=== PATIENT | female | born 1990 | race Caucasian/White ===

== ENCOUNTER → 2017-06-27 | Outpatient (REF) | payer OTHER | LOC: M SFHCLERA 12:13 | PROVIDERS: ATTEND Physician Assistant | DX: N89.8 Other specified noninflammatory disorders of vagina (principal) ==

== ENCOUNTER → 2017-11-05 | Outpatient (REF) | payer OTHER ==
[2017-11-05 21:31] LABS: CHLAMYDIA DNA AMPLIFICATION NEGATIVE (NEGATIVE); GC DNA AMPLIFICATION NEGATIVE (NEGATIVE)
[2017-11-06 11:25] LABS: HIV 1&2 SCREEN CENTAUR NEGATIVE (NEGATIVE)
== END ==
LOC: M SFHCLERA 10:38
DX: N89.8 Other specified noninflammatory disorders of vagina (principal); Z11.4 Encounter for screening for human immunodeficiency virus [HIV]

== ENCOUNTER 2018-10-06 17:37 | Emergency (ER) | payer OTHER ==
[~2018-10-06] VITALS: Ht 157.5 cm; Wt 74.5 kg
[2018-10-06 20:29] VITALS: BP 132/72
== END 2018-10-06 20:29 | disposition home or self-care (01) ==
LOC: M ED 17:37
DX: S06.0X0A Concussion without loss of consciousness, initial encounter (principal); W00.0XXA Fall on same level due to ice and snow, initial encounter; Y92.89 Other specified places as the place of occurrence of the external cause

== ENCOUNTER → 2018-10-23 | Outpatient (CLI) | payer OTHER ==
--- NOTE | 2018-10-25 08:52 | REP ---
MRI brain without contrast: History: Concussion. . Comparison study: No comparison study. Technique: Axial and sagittal imaging planes are utilized for T1 and T2-weighted scans. Sequences include spin-echo, fast spin echo, FLAIR, and diffusion weighted sequences. MRI findings: No bony calvarial lesion is seen. Craniocervical junction and upper cervical cord are normal in appearance. There is no MR evidence of significant paranasal sinus disease. No intraorbital abnormality is seen. The lateral, third, and fourth ventricles are normal in size and position. Sherman-white differentiation pattern is intact above and below the tentorium. There is no evidence of intracranial hemorrhage. No mass, infarction, extra-axial fluid collection or midline shift is seen. No abnormal white matter lesion is seen. Impression: Negative noncontrast brain MRI study. Electronically Signed by Jose Elias Munoz MD 10/25/2018 08:43 A
== END ==
LOC: M RAD 10:16
PROVIDERS: ATTEND Family Medicine
DX: S06.0X0A Concussion without loss of consciousness, initial encounter (principal); X58.XXXA Exposure to other specified factors, initial encounter; Y92.9 Unspecified place or not applicable

== ENCOUNTER → 2019-06-09 | Outpatient (REF) | payer OTHER ==
[2019-06-09 23:06] LABS: CHLAMYDIA DNA AMPLIFICATION NEGATIVE (NEGATIVE); GC DNA AMPLIFICATION NEGATIVE (NEGATIVE)
== END ==
LOC: M SFHCLERA 11:36
PROVIDERS: ATTEND Physician Assistant
DX: R30.0 Dysuria (principal)

== ENCOUNTER → 2019-12-17 | Outpatient (REF) | payer OTHER ==
[2019-12-17 20:27] LABS: CHLAMYDIA DNA AMPLIFICATION POSITIVE (NEGATIVE); GC DNA AMPLIFICATION NEGATIVE (NEGATIVE)
== END ==
LOC: M SFHCLERA 13:17
PROVIDERS: ATTEND Physician Assistant
DX: R30.0 Dysuria (principal)

== ENCOUNTER → 2020-06-07 | Outpatient (REF) | payer OTHER ==
[2020-06-07 21:14] LABS: CHLAMYDIA DNA AMPLIFICATION NEGATIVE (NEGATIVE); GC DNA AMPLIFICATION NEGATIVE (NEGATIVE)
== END ==
LOC: M SFHCLERA 16:26
PROVIDERS: ATTEND Family Medicine
DX: Z11.3 Encounter for screening for infections with a predominantly sexual mode of transmission (principal)

== ENCOUNTER → 2020-06-07 | Outpatient (CLI) | payer OTHER ==
[2020-06-07 13:59] LABS: HCG, SERUM QUALITATIVE NEGATIVE (NEGATIVE)
[2020-06-07 14:39] LABS: HEPATITIS A ANTIBODY IGM NEGATIVE (NEGATIVE); HEPATITIS B CORE ANTIBODY IGM NEGATIVE (NEGATIVE); HEPATITIS B SURFACE ANTIGEN NEGATIVE (NEGATIVE); HEPATITIS C VIRUS ABY INDEX 0.1 INDEX (<0.8); HIV 1&2 SCREEN CENTAUR NEGATIVE (NEGATIVE)
== END ==
LOC: M LAB 12:33
PROVIDERS: ATTEND Family Medicine
DX: Z11.3 Encounter for screening for infections with a predominantly sexual mode of transmission (principal); Z20.2 Contact with and (suspected) exposure to infections with a predominantly sexual mode of transmission

== ENCOUNTER → 2020-06-21 | Outpatient (REF) | payer OTHER | LOC: M SFHCWAGY 16:22 | PROVIDERS: ATTEND Family Medicine | DX: Z12.4 Encounter for screening for malignant neoplasm of cervix (principal); N76.0 Acute vaginitis ==

== ENCOUNTER → 2020-08-10 | Outpatient (CLI) | payer OTHER ==
--- NOTE | 2020-08-10 14:05 | REP ---
INDICATION: N630. RIGHT BREAST LUMP HX, GALACTORRHEA; R BREAST UPPER QUANDRANT NODULE. COMPARISON: Mammography no comparison breast imaging. TECHNIQUE: Bilateral CC and MLO) view(s) were taken. An opaque skin markers fixes skin at the site of the palpable lump and is visible on the MLO projection images. Apparently it had fallen off for the CC views but is noted to be in the upper outer quadrant anterior 3rd. Routine views of the right breast are augmented by magnified focal spot-compression CC MLO and true mL images. 3D tomography is carried. FINDINGS: Scattered fibroglandular elements are seen bilaterally. No suspicious or dominant density is seen. No microcalcification or architectural distortion is seen. No worrisome skin change is appreciated. 3-D tomosynthesis shows no additional finding. No dominant density is seen at the site of the palpable lump or elsewhere in either breast on mammography. Normal appearing lymph nodes are visible in the right axilla. No spiculation, architectural distortion or microcalcification is observed. No worrisome skin changes seen. Sonographic evaluation. Targeted sonography at site of the palpable lump demonstrates a complex cyst just beneath the dermis of the skin in the 12 o'clock position of the right breast. This measures 3.5 x 4.0 x 2.4 mm. There is well-defined back wall and some enhanced through transmission consistent with a complex cyst. There is no observable tract to the overlying skin. It does not meet criteria of a simple cyst. The Volpara volumetric breast density pattern is B. IMPRESSION: BI-RADS category 4 suspicious sonographic findings of the right breast. No mammographic abnormality or correlate. Ultrasound-guided needle biopsy of the palpable abnormality at 12 o'clock in the right breast with marker clip placement and post clip placement mammography recommended.. [facility] lifetime breast cancer risk assessment score is 11.9%. This mammogram was interpreted with the aid of an FDA-approved computer-aided detection system. The patient states she had a clinical breast exam in July of 2020. The patient letter being requested is M4. RECOMMENDATION: Ultrasound-guided needle biopsy right breast nodule with clip placement and post clip placement mammographya. <Electronically signed by Shaquille Munoz > 08/10/20 [id number]
== END ==
LOC: M WHC 10:58
PROVIDERS: ATTEND Family Medicine
DX: N63.11 Unspecified lump in the right breast, upper outer quadrant (principal)
CPT/HCPCS: 76642; 77066; G0279

== ENCOUNTER → 2020-08-29 | Outpatient (CLI) | payer OTHER ==
[2020-08-29 12:37] VITALS: BP 128/68
--- NOTE | 2020-08-29 13:00 | ROOPDOC ---
[facility] Report Of Operation Report of Operation Date of the procedure:08/29/20 Diagnosis: Right complex cyst which is palpable Procedure:ultrasound guided aspiration of Right breast complex cyst Proceduralist: Lucien Betancourt D.O. EBL: minimal Lidocaine 1% LOT [id number] Expiration: 04/2023 Sodium Bicarbonate 8.4% LOT [id number] Expiration: Procedure details: Patient noted a palpable nodule in her right breast at 12:00 4 CFN. Diagnostic mammogram showed no suspicious lesions. Diagnostic US of the area showed a small complex cyst right under dermis. BIRADS4 category was assigned to this study and tissue evaluation was recommended. Informed consent was obtained. The most common risk and possible complications including bleeding, hematoma, bruising, infection, injury to surrounding structures were explained to the patient and she expressed understanding. Patient was taken to the procedure room and placed on the bed. Appropriate time out was done stating patients name, date of , and the procedure to be performed. The right breast was prepped and draped in the usual fashion. The ultrasound was used to confirm the location of the complex cyst in the right breast at 12:00 4 centimeters from the nipple. Patent was asked to confirm the location of her palpable nodule and she pointed to the 12:00 4 CFN location. Plain Lidocaine 1% and 8.4% sodium bicarbonate 10:1 mix was used to numb the skin, and tissues along the anticipated aspiration tract. 22 G Spinal needle was used to aspirate cyst under direct ultrasound guidance. Aspirated fluid was sanguineous and amounted to 1 cc. The fluid was sent for evaluation. The complex cyst completely collapsed and images were captured. Manual pressure over the cyst aspiration site and tract was held. No bleeding was noted upon removal of the pressure. There was no need for post procedure mammogram as there were no mammographic abnormalities identified in the first place. Patient tolerated procedure well. Discharge instructions were discussed with the patient and she expressed understanding. LUCIEN BETANCOURT DO Aug 29, 2020 13:00
--- NOTE | 2020-08-29 18:49 | REP ---
INDICATION: N63.10 RT BREAST LUMP,ASPIRATON W/POSS RT BREAST BIOPSY. COMPARISON: Comparison sonography August 10, 2020.. TECHNIQUE: Ultrasound guidance is provided to Dr. Germain. FINDINGS: Sonographic guidance is provided to Dr. Germain. An ultrasound-guided cyst aspiration was performed the right breast in the 12 o'clock position. IMPRESSION: Sonographic guidance. <Electronically signed by Shaquille Munoz > 08/29/20 [id number]
== END ==
LOC: M WHCPRO 10:12
PROVIDERS: ATTEND Surgery
DX: N60.01 Solitary cyst of right breast (principal)

== ENCOUNTER → 2021-04-05 | Outpatient (CLI) | payer OTHER ==
[~2021-04-05] MED LIST: MULT1TAB94 PO; MULTTAB61 PO; VITAD400CA PO
== END ==
LOC: M WUC 10:21
PROVIDERS: ATTEND Nurse Practitioner Family
DX: J01.00 Acute maxillary sinusitis, unspecified (principal)

== ENCOUNTER 2021-09-05 10:08 | Emergency (ER) | payer OTHER ==
[~2021-09-05] VITALS: Ht 157.5 cm; Wt 76.2 kg
[2021-09-05 10:08] VITALS: BP 129/72
[2021-09-05] MEDS ORDERED: VITAD400CA PO (10:38)
[2021-09-05] MEDS ORDERED: MULTTAB61 PO (10:38)
[2021-09-05] MEDS ORDERED: MULT1TAB94 PO (10:38)
[2021-09-05 11:21] LABS: BASO % 0.3 % (0.0-1.0); EOS # 0.1 10^3/uL (0.0-0.5); EOS % 1.3 % (0.0-3.0); HEMATOCRIT 40.4 % (36.0-47.0); HEMOGLOBIN 13.1 g/dl (12.0-15.5); LYMPH # 1.7 10^3/uL (1.5-5.0); MEAN CORPUSCULAR HEMOGLOBIN 27.1 pg (27.0-33.0); MEAN CORPUSCULAR HGB CONC 32.4 g/dl (32.0-36.5); MEAN CORPUSCULAR VOLUME 83.5 fl (80.0-96.0); MONO # 0.3 10^3/uL (0.0-0.8); MONO % 4.8 % (2.0-8.0); NEUTROPHILS # 4.1 10^3/uL (1.5-8.5); NEUTROPHILS % 66.3 % (36.0-66.0); PLATELET COUNT, AUTOMATED 284 10^3/uL (150-450); RED BLOOD COUNT 4.84 10^6/uL (4.00-5.40); WHITE BLOOD COUNT 6.2 10^3/uL (4.0-10.0)
[2021-09-05 11:49] LABS: ALBUMIN 3.9 GM/DL (3.2-5.2); BILIRUBIN,DIRECT 0.3 MG/DL (0.0-0.2); BILIRUBIN,TOTAL 1.1 MG/DL (0.2-1.0); TOTAL PROTEIN 6.9 GM/DL (6.4-8.2)
== END 2021-09-05 12:37 | disposition home or self-care (01) ==
LOC: M ED 10:08
DX: R10.9 Unspecified abdominal pain (principal); R19.7 Diarrhea, unspecified; R11.0 Nausea; Z88.8 Allergy status to other drugs, medicaments and biological substances

== ENCOUNTER 2022-02-06 09:10 | Emergency (ER) | payer OTHER ==
[~2022-02-06] VITALS: Ht 157.5 cm; Wt 71.8 kg
[2022-02-06] MEDS ORDERED: BUSP15TA47 (09:45)
[2022-02-06 12:29] LABS: BASO % 0.4 % (0.0-1.0); EOS # 0.1 10^3/uL (0.0-0.5); EOS % 1.1 % (0.0-3.0); HEMATOCRIT 39.2 % (36.0-47.0); HEMOGLOBIN 12.8 g/dl (12.0-15.5); LYMPH # 2.4 10^3/uL (1.5-5.0); LYMPH % 33.7 % (24.0-44.0); MEAN CORPUSCULAR HEMOGLOBIN 27.9 pg (27.0-33.0); MEAN CORPUSCULAR HGB CONC 32.7 g/dl (32.0-36.5); MEAN CORPUSCULAR VOLUME 85.6 fl (80.0-96.0); MONO # 0.5 10^3/uL (0.0-0.8); NEUTROPHILS # 4.1 10^3/uL (1.5-8.5); NEUTROPHILS % 57.5 % (36.0-66.0); PLATELET COUNT, AUTOMATED 285 10^3/uL (150-450); RED BLOOD COUNT 4.58 10^6/uL (4.00-5.40); WHITE BLOOD COUNT 7.1 10^3/uL (4.0-10.0)
[2022-02-06 12:42] LABS: BLOOD UREA NITROGEN 11 MG/DL (7-18); CALCIUM LEVEL 9.3 MG/DL (8.5-10.1); CARBON DIOXIDE LEVEL 24 MEQ/L (21-32); CHLORIDE LEVEL 108 MEQ/L (98-107); CREATININE FOR GFR 0.72 MG/DL (0.55-1.30); GLOMERULAR FILTRATION RATE > 60.0 (>60); GLUCOSE, FASTING 96 MG/DL (70-100); POTASSIUM SERUM 4.4 MEQ/L (3.5-5.1); SODIUM LEVEL 138 MEQ/L (136-145)
[2022-02-06] MEDS ORDERED: IBUPROFEN 600MG TAB PO ONE (13:30)
[2022-02-06] MEDS ORDERED: HYDR-3363 PO (13:42)
[2022-02-06 13:48] VITALS: BP 185/99
== END 2022-02-06 13:49 | disposition home or self-care (01) ==
LOC: M ED 09:10
DX: R07.9 Chest pain, unspecified (principal); F43.0 Acute stress reaction; F41.9 Anxiety disorder, unspecified; F17.200 Nicotine dependence, unspecified, uncomplicated; Z79.899 Other long term (current) drug therapy; Z88.8 Allergy status to other drugs, medicaments and biological substances

== ENCOUNTER → 2022-04-29 | Outpatient (CLI) | payer OTHER ==
[~2022-04-29] MED LIST changes: +BUSP15TA47; +HYDR-3363 PO
[2022-04-29 19:02] LABS: HIV 1&2 SCREEN CENTAUR NEGATIVE (NEGATIVE)
[2022-04-29 19:03] LABS: GC DNA AMPLIFICATION NEGATIVE (NEGATIVE)
[2022-05-01 18:07] LABS: HSV IgM TYPES 1&2 <0.91 Ratio (0.00-0.90)
== END ==
LOC: M LAB 16:49
PROVIDERS: ATTEND Student in an Organized Health Care Education/Training Program
DX: N89.8 Other specified noninflammatory disorders of vagina (principal)

== ENCOUNTER 2022-07-29 10:07 | Emergency (ER) | payer OTHER ==
[~2022-07-29] VITALS: Ht 157.5 cm; Wt 72.2 kg
[2022-07-29 10:08] VITALS: BP 118/70
== END 2022-07-29 13:11 | disposition home or self-care (01) ==
LOC: M ED 10:07
DX: H00.011 Hordeolum externum right upper eyelid (principal); F10.10 Alcohol abuse, uncomplicated; Z88.8 Allergy status to other drugs, medicaments and biological substances; Z79.899 Other long term (current) drug therapy

== ENCOUNTER 2022-12-16 11:07 | Emergency (ER) | payer OTHER ==
[~2022-12-16] VITALS: Ht 157.5 cm; Wt 73.3 kg
[2022-12-16] MEDS ORDERED: APPL300T4 PO (11:17)
[2022-12-16] MEDS ORDERED: PRENTAB7 PO (11:17)
[2022-12-16] MEDS ORDERED: ACETAMINOPHEN 325 MG TAB PO ONE (13:35)
[2022-12-16 14:14] LABS: BASO % 0.3 % (0.0-1.0); EOS # 0.1 10^3/uL (0.0-0.5); EOS % 0.9 % (0.0-3.0); HEMATOCRIT 39.1 % (36.0-47.0); HEMOGLOBIN 12.6 g/dl (12.0-15.5); LYMPH # 2.6 10^3/uL (1.5-5.0); LYMPH % 33.7 % (24.0-44.0); MEAN CORPUSCULAR HEMOGLOBIN 27.1 pg (27.0-33.0); MEAN CORPUSCULAR HGB CONC 32.2 g/dl (32.0-36.5); MEAN CORPUSCULAR VOLUME 84.1 fl (80.0-96.0); MONO # 0.4 10^3/uL (0.0-0.8); MONO % 5.7 % (2.0-8.0); NEUTROPHILS # 4.6 10^3/uL (1.5-8.5); NEUTROPHILS % 59.1 % (36.0-66.0); PLATELET COUNT, AUTOMATED 300 10^3/uL (150-450); RED BLOOD COUNT 4.65 10^6/uL (4.00-5.40); WHITE BLOOD COUNT 7.8 10^3/uL (4.0-10.0)
[2022-12-16 14:52] LABS: ALKALINE PHOSPHATASE 55 U/L (46-116); ALT/SGPT 23 U/L (7.0-40); AST/SGOT 19 U/L (<34); BILIRUBIN,DIRECT 0.3 MG/DL (<0.4); BILIRUBIN,TOTAL 1.1 MG/DL (0.3-1.2); CK-MB VALUE MASS < 1.0 NG/ML (<3.6); THYROID STIMULATING HORMONE 0.843 uIU/ML (0.55-4.78); TOTAL PROTEIN 6.9 G/DL (5.7-8.2)
[2022-12-16 14:54] LABS: CPK CREATINE PHOSPHOKINASE 65 U/L (34-145); MB/CK RELATIVE INDEX 1.53 (< OR =4)
[2022-12-16] MEDS ORDERED: ALBUTEROL 90 MCG/ACT 8GM HFA INHALER INH ONE (14:55)
[2022-12-16 14:59] LABS: HCG, SERUM QUALITATIVE NEGATIVE (NEGATIVE)
[2022-12-16] MEDS ORDERED: KETO10TAB PO (15:57)
[2022-12-16] MEDS ORDERED: OMEP-173 PO (15:57)
[2022-12-16] MEDS ORDERED: VENTAER INH (15:57)
[2022-12-16] MEDS ORDERED: METH-1164 PO (15:57)
[2022-12-16 16:07] VITALS: BP 105/58
== END 2022-12-16 16:25 | disposition home or self-care (01) ==
LOC: M ED 11:07
DX: R07.9 Chest pain, unspecified (principal); M51.36 Other intervertebral disc degeneration, lumbar region; M62.830 Muscle spasm of back; F41.9 Anxiety disorder, unspecified; Z88.8 Allergy status to other drugs, medicaments and biological substances; Z79.52 Long term (current) use of systemic steroids; Z79.810 Long term (current) use of selective estrogen receptor modulators (SERMs); Z79.83 Long term (current) use of bisphosphonates; Z79.899 Other long term (current) drug therapy

== ENCOUNTER → 2023-03-11 | Outpatient (CLI) | payer OTHER ==
[~2023-03-11] MED LIST changes: +APPL300T4 PO; +KETO10TAB PO; +METH-1164 PO; +OMEP-173 PO; +PRENTAB7 PO; +VENTAER INH
== END ==
LOC: M WHC 08:10
PROVIDERS: ATTEND Family Medicine
DX: N64.4 Mastodynia (principal); Z80.41 Family history of malignant neoplasm of ovary; R92.8 Other abnormal and inconclusive findings on diagnostic imaging of breast
CPT/HCPCS: 76641; 77066; G0279

== ENCOUNTER → 2024-09-29 | Outpatient (REF) | payer OTHER | LOC: M LAB REF 09:24 | PROVIDERS: ATTEND Student in an Organized Health Care Education/Training Program | DX: K21.9 Gastro-esophageal reflux disease without esophagitis (principal); Z33.1 Pregnant state, incidental; F45.8 Other somatoform disorders ==

== ENCOUNTER → 2025-06-02 | Outpatient (REF) | payer OTHER | LOC: M LAB REF 11:37 | PROVIDERS: ATTEND Student in an Organized Health Care Education/Training Program | DX: Z86.19 Personal history of other infectious and parasitic diseases (principal); B96.81 Helicobacter pylori [H. pylori] as the cause of diseases classified elsewhere ==